=== PATIENT | female | born 1970 | race American Indian/Alaskan Native ===

== ENCOUNTER 2018-01-28 10:18 | Inpatient (IN) | payer BC ==
[2018-01-01 12:37] VITALS: BMI 28.3
[2018-01-28] MEDS ORDERED: Bupivacaine HCl 0.5% PF (30 ml) Inj ONE (11:16)
[2018-01-28] MEDS ORDERED: Sodium Chloride 0.9% 20 ML IV ONE (11:16)
[2018-01-28] MEDS ORDERED: Vasopressin 20 Units/ml Inj ONE (11:17)
[2018-01-28] MEDS ORDERED: Bupivacaine-Epi 0.5%-1:200,000 PF Inj INFIL ONE (11:23)
[2018-01-28] MEDS ORDERED: Propofol 10 mg/ml Inj (20 ML) ONE (11:52)
[2018-01-28] MEDS ORDERED: Midazolam 2 MG/2 ML VIAL ONE (11:54)
[2018-01-28] MEDS ORDERED: ceFAZolin 1 gm in NS 2 GM/200 ML BAG IVPB ONE (12:21)
[2018-01-28] MEDS ORDERED: HYDROmorphone 0.5 mg/0.5 ml ISec IVP PRN ×3 (13:09→15:46)
[2018-01-28] MEDS ORDERED: Neostigmine Methylsulfate 3mg/3ml Syringe IV ONE (15:52)
--- NOTE | 2018-01-28 16:59 | PCM.OP ---
Operative Report - Operative Report Date of Surgery/Procedure: 01/28/18 Time of Surgery/Procedure: 16:56 Surgeon: Giorgio Graham MD Dental Technician Apprentice: Cassia AMADO Anesthesia/Sedation: wtih Et Tube Pre-Operative Diagnosis: Chronic pelvic pain. Prolapse uterus. Abnormal uteine bleeding. Fibroid uterus. Chronic pelvic pain Post-Operative Diagnosis: Chronic pelvic pain. Prolapse uterus. Abnormal uteine bleeding. Fibroid uterus. Chronic pelvic pain Indication for Surgery: worsening symptomatic fibroid uterus Operative Findings: Massive uterus approx 20 weeks size, multiple myomas >15, normal appearing ovaries and tubes. normal bladder anatomy and ureters efluzing urine freely. Procedure/Operation Description: Robotic Assisted Hysterectomy Bilateral salpingectomy >250g. Uterosacroligament suspenssion colpopexy. Lysis of adhessions. Diagnostic cystoscopy. DESCRIPTION OF OPERATION. This is a 47 years old female with symptomatic massive size fibroid uterus, associated pelvic pain and abnormal uterine bleeding and uterine prolapse. The patient completed an extensive preoperative workup, which included an ultrasound, as well as a Pap smear, chemistry and hematology studies. The patient reported these symptoms and problems as debilitating, and adversely affecting her quality of life. Following a period of failed conservative management, and patient decision was made to proceed with a more invasive approach to address the above noted problems. Initially the patient elected to undergo a myomectomy, however prior to surgery, the patient elected to proceed with a hysterectomy given her advanced age and the definitive decision that she is no longer looking for further pregnancies. A decision was finally made to proceed with a total robotic assisted hysterectomy, bilateral salpingectomy, and vaginal vault suspension. A detailed description of this robotic procedure was given to the patient, all indications, risks, benefits and alternative treatments were reviewed, and printed material was also given to the patient regarding robotic surgery. The patient elected to proceed with the proposed procedure fully understanding all the risks and benefits associated with this proposed robotic procedure. After proper consent was obtained from the patient was taken to the operating room, proper patient identification was completed. She was placed in dorsal lithotomy position; general anesthesia was induced without difficulty. Her legs were placed in adjustable Nikolay stirrups. Careful attention was placed to avoid hyper-flexion or hyper-rotation of the lower extremities at the hip and the knee joints. She was prepped and draped appropriately for robotic assisted hysterectomy and colposuspension. Herrera catheter was inserted under sterile conditions. A weighted speculum was placed in the vagina, anterior lip of cervix was grasped with a tenaculum, the cervix was mildly dilated and a V-care uterine manipulator was inserted through the cervix and secured. The weighted speculum and tenaculum were removed from the patient's vagina and attention was turned to the patient's abdomen. Local anesthetic solutions of 0.25% Marcaine with epinephrine were utilized to infiltrate the skin prior to all abdominal skin incisions. A total of 15 mL of 0.25% Marcaine was utilized throughout the procedure. While tenting the abdominal wall up, a Veress needle was inserted at a 45 degree angle. With CO2 insufflation, there was a drop in intraperitoneal pressure confirming correct placement. Insufflation was carried out to approximately 3 liters. A blunt robotic trocar and sleeve was introduced through the camera port in the midline, approximately 8 cm above the umbilicus. Then, using a 30-degree lens robotic scope, initial survey of the patient's abdomen revealed a massive size uterus larger than 20 weeks in size, intra-abdominal intrapelvic adhesions and normal-appearing tubes and ovaries. Uterus appeared extremely enlarged with multiple myomas originating from the anterior posterior and fundal region of the uterus. Under direct visualization , 3 additional robotic ports were utilized for this procedure. The first one, approximately 9 cm superior to the superior iliac crest on the RIGHT, a second port was approximately 9 cm superior to the superior iliac crest on the LEFT, and a third one was approximately 8 cm RIGHT lateral of the camera port in the midline. All robotic ports were approximately 8 mm in length. An surgical assistant port was inserted approximately 8 cm LEFT lateral of the camera port, and the versastep trocar and sleeve were introduced in the recommended fashion. A Veress and sheath were first introduced through a 1 cm incision, the Veress was removed and a trocar was introduced through the sheath and secured. Again, excellent visualization was noted confirming intraperitoneal placement. The placement of the trocars was all accomplished under careful and meticulous placement under direct visualization. Following the placement of all trocars, the da April robotic system was docked in a parallel side docking method without difficulty after the patient was placed in moderate Trendelenburg position and small bowel had been swept away out of the pelvis. The ureter was positively identified. The following instruments were utilized for this procedure: the bipolar cautery device, a monopolar landen and finally a ProGrasp. Meticulous lysis of adhesions as well as centralizer was completed utilizing sharp and blunt dissection. In order to complete this hysterectomy, decision was made to debulk this fibroid uterus, and the myomectomy was completed. Multiple large myomas were enucleated in a sharp and blunt dissection from the anterior and posterior aspect of the uterus as well as in the fundal region. The same location of myomas was accomplished utilizing an elliptical incision over the myoma as well as injection of vasoactive PITRESSIN solution to aid in hemostasis. At this time as the uterus was debulked, and all myomas were tagged and labeled for later extraction attention was then turned to the hysterectomy portion of this procedure. Prior to the start of the hysterectomy, both ureters were visualized along the full course, peristalsis bilaterally. On the patient's right side, the uterosacral and the round ligaments were identified cauterized and transected, the broad ligament was divided all the way down to the utero cervical junction bladder flap was then created by transecting the visceroperitoneum over the bladder reflection. In a similar fashion, the left round ligament, uterosacral ligament and broad ligament were cauterized sealed and transected, taken down to the level of the cervical uterine junction. Uterine vessels on both sides were sealed and transected. The Uterosacral ligaments were sealed and transected. The monopolar landen and PK were utilized to complete the colpotomy incision around the care vaginal ring. Excellent hemostasis was noted. The uterus, cervix, multiple myomas over 12 in number and fallopian tubes were delivered transvaginally through the colpotomy incision and sent to pathology for permanent analysis. The colpotomy incision was closed with 2-0 v LOC in a continuous fashion with excellent hemostasis. The vaginal vault suspension was achieved by suspending the vaginal cuff to the base of the uterosacral ligaments bilaterally. For uterosacral ligament suspension portion of the procedure, the ureters were once again identified to avoid possible compromise or kinking while suspending the vaginal vault. A 2-0 permanent suture material ([place]o) was utilized to suspend the uterosacral ligaments from the base to the vaginal vault cuff incision including both anterior and posterior aspect of the colpotomy incision. Utilizing a 3-0 Monocryl suture, the peritoneum over the colpotomy incision and uterosacral ligaments was re-approximated in a continuous fashion. The pelvis and abdomen were irrigated copiously and cleared of all clots and debris. FloSeal as well as Interceed was applied over the incision sites. Excellent hemostasis was once again noted. All robotic and laparoscopic instruments removed under direct visualization. The robotic arms were undocked , and a da April robotic system was wheeled away from the patient's bedside. Both surgical assistant and camera ports were closed at the fascial layer utilizing a 0 Vicryl suture material in interrupted fashion. Pneumoperitoneum was reduced and all skin incisions were closed utilizing 4-0 Monocryl in a subcutaneous fashion. Dermabond was applied to all incisions. At the conclusion of this procedure, a diagnostic cystoscopy was completed. The Herrera catheter was removed; the bladder was distended with approximately 350 cc of normal saline. A 17 Maori 30 cystoscope was introduced through the urethra and a survey of the bladder anatomy was completed. The trigone, and the dome of the bladder appeared normal, both ureteral orifices appeared normal and were efluxing urine freely. The urethra appeared normal. A Herrera catheter was reinserted. Vaginal packing was inserted to be removed the next morning. Patient emerged from general anesthesia without difficulty, and was taken to recovery room in stable condition. Prior to incision the patient received antibiotics, prior to closure sponge lap and needle counts were correct x2. This wasn't especially challenging surgical case due to the massive size of this uterus as well as abdominal and pelvic adhesions. In addition, this hysterectomy required a complete myomectomy in order to accomplish the completion of this hysterectomy in robotic assisted approach. This difficult surgical procedure was accomplished utilizing minimally invasive approach only after the decompression ended debulking of this uterus. This extra step required an additional hour to an hour and a half in operative time. Estimated Blood Loss: 15 Blood Replaced: none Sponge/Instrument Count: correct times 2 Drains: none Complications: none Specimen: uterus cervix tubes and multiple myomas Discharge & Condition: as per criteria
[2018-01-28] MEDS ORDERED: Oxycodone/Acetaminophen 5/325 mg Tab PO PRN (17:00)
[2018-01-28] MEDS ORDERED: Sodium Chloride 0.9% 1,000 ML IV SCH (17:00)
[2018-01-28] MEDS ORDERED: Morphine 4 MG/ML VIAL IVP PRN (17:00)
[2018-01-28] MEDS ORDERED: Sodium Chloride 0.9% 1,000 ML IV ONE (18:00)
[2018-01-28] MEDS ORDERED: ceFAZolin IV 2 gm in Dextrose 2 GM/50 ML BAG IVPB ONE (20:17)
[2018-01-28] MEDS: ceFAZolin 2 GM in Sodium Chloride 0.9% 100 ML IVPB SCH (20:20)
[2018-01-29] MEDS: ceFAZolin 2 GM in Sodium Chloride 0.9% 100 ML IVPB SCH ×2 (04:20→12:19)
[2018-01-29] MEDS ORDERED: ceFAZolin IV 2 gm in Dextrose 2 GM/50 ML BAG IVPB ONE (04:21)
[2018-01-29 08:19] VITALS: BP 91/57; PULSE 88; RESP 18; TEMP 97.2; O2SAT 99
[2018-01-29 09:12] LABS: HEMOGLOBIN 9.2 g/dL (11.0-16.0); MEAN CORPUSCULAR HEMOGLOBIN 26.4 pg (27.0-31.0); MEAN CORPUSCULAR HGB CONC 32.6 g/dL (33.0-37.0); MEAN PLATELET VOLUME 10.9 fL (7.2-11.7); RBC 3.47 Mil/uL (3.80-5.20); WHITE BLOOD COUNT 8.9 K/uL (4.8-10.8)
--- NOTE | 2018-01-29 12:13 | CP.PCM.PN ---
Subjective - Date & Time of Evaluation Date of Evaluation: 01/29/18 Time of Evaluation: 12:11 - Subjective Subjective: Patient states she is feeling better. Pain controlled, requests ibuprofen for pain. Demetri PO, yet to void Objective - Vital Signs/Intake and Output Vital Signs (last 24 hours): Temp Pulse Resp BP Pulse Ox 97.2 F L 88 18 91/57 L 99 01/29/18 08:00 01/29/18 08:00 01/29/18 08:00 01/29/18 08:00 01/29/18 08:00 Intake and Output: 01/29/18 01/29/18 06:59 18:59 Intake Total 1360 Balance 1360 - Medications Medications: Current Medications Cefazolin Sodium 2 gm/ Sodium (Chloride) 100 mls @ 200 mls/hr IVPB Q8H GEORGE PRN Reason: Protocol Stop: 01/29/18 12:49 Last Admin: 01/29/18 04:20 Dose: 200 mls/hr Sodium Chloride (Sodium Chloride 0.9%) 1,000 mls @ 100 mls/hr IV .Q10H [facility] Last Admin: 01/29/18 03:57 Dose: 100 mls/hr Morphine Sulfate (Morphine) 4 mg IVP Q4H PRN PRN Reason: Pain, severe (8-10) Ondansetron HCl (Zofran Inj) 4 mg IVP ONCE PRN PRN Reason: Nausea/Vomiting Oxycodone/Acetaminophen (Percocet 5/325 Mg Tab) 2 tab PO Q4 PRN PRN Reason: Pain, moderate (4-7) Stop: 01/31/18 17:01 - Labs Labs: 01/29/18 09:05 - GI/Abdominal Exam Additional comments: soft, no vag bleeding, no erythema, incisions intact, mild tenderness Assessment and Plan (1) Chronic female pelvic pain Assessment & Plan: POD#1 s/p hysterectomy d/c home f/u 2 weeks call office for pain, bleeding, fever, SOB rx for ibuprofen encourage OOB d/w DR. Graham, agrees with above Status: Acute (2) Prolapsed uterus Status: Acute (3) Abnormal uterine bleeding (AUB) Status: Acute (4) Fibroid, uterine Status: Acute
== END 2018-01-29 15:25 | disposition home or self-care (01) | DRG 743 ==
LOC: C.SDS 10:18 → C.9S 17:01 → C.4M 17:20
PROVIDERS: ADMIT Obstetrics & Gynecology; ATTEND Obstetrics & Gynecology
PROC: 0USG4ZZ Reposition Vagina, Percutaneous Endoscopic Approach (ICD-10-PCS; 2018-01-28)
PROC: 8E0W4CZ Robotic Assisted Procedure of Trunk Region, Percutaneous Endoscopic Approach (ICD-10-PCS; 2018-01-28)
PROC: 0TJB8ZZ Inspection of Bladder, Via Natural or Artificial Opening Endoscopic (ICD-10-PCS; 2018-01-28)
PROC: 0UT94ZZ Resection of Uterus, Percutaneous Endoscopic Approach (ICD-10-PCS; principal; 2018-01-28 11:30)
PROC: 0UT74ZZ Resection of Bilateral Fallopian Tubes, Percutaneous Endoscopic Approach (ICD-10-PCS; 2018-01-28 11:30)
DX: D25.9 Leiomyoma of uterus, unspecified (principal); N81.4 Uterovaginal prolapse, unspecified; G89.29 Other chronic pain; R10.2 Pelvic and perineal pain; N93.8 Other specified abnormal uterine and vaginal bleeding